=== PATIENT | female | born 1955 | race Caucasian/White ===

== ENCOUNTER 2024-06-26 13:39 | Inpatient (IN) | payer OTHER, SELFPAY ==
[2024-06-26] VITALS (15 sets, daily range): BP systolic 94–163; BP diastolic 41–76
[2024-06-26 10:47] LABS: % Basophils 0.4 % (0-2); % Eosinophils 1.2 % (0-6); % Immature Granulocytes 1.2 % (0-0.5); % Lymphocytes 17.8 % (20.5-51.1); % Monocytes 4.1 % (1.7-9.3); % Neutrophils 75.3 % (42.2-75.2); ALT (SGPT) 20 U/L (0-35); AST (SGOT) 21 U/L (14-36); Absolute Eosinophils 0.1 10^3/uL (0-0.7); Absolute Immature Granulocytes 0.1 10^3/uL (0-0.05); Absolute Lymphocytes 0.9 10^3/uL (1.2-3.4); Absolute Monocytes 0.2 10^3/uL (0.1-0.6); Absolute Neutrophils 3.8 10^3/uL (1.4-6.5); Albumin 4.3 g/dl (3.5-5.0); Alkaline Phosphatase 110 U/L (38-126); Blood Urea Nitrogen 14 mg/dl (7-17); Calcium 9.3 mg/dl (8.4-10.2); Carbon Dioxide 23 mmol/L (22-30); Chloride 102 mmol/L (98-107); Glucose 128 mg/dl (70-99); Hematocrit 16.6 % (37.0-47.0); Hemoglobin 5.8 g/dL (12.0-16.0); Mean Corp Hgb Conc. 34.9 g/dL (33.0-37.0); Mean Corpuscular Hgb 36.7 pg (27.0-31.0); Mean Corpuscular Volume 105.1 fL (81.0-99.0); Mean Platelet Volume 11.2 fL (7.4-10.4); Nucleated Red Blood Cells % 0 %; Platelet Count 167 10^3/uL (130-400); Potassium 4.2 mmol/L (3.5-5.1); Red Blood Cell Count 1.58 10^6/uL (4.20-5.40); Red Cell Dist. Width 13.8 % (11.5-14.5); Sodium 136 mmol/L (135-145); Total Bilirubin 0.6 mg/dl (0.2-1.3); Total Protein 7.1 g/dl (6.3-8.2); White Blood Cell Count 5.1 10^3/uL (4.8-10.8); eGFR > 60.00
--- NOTE | 2024-06-26 11:30 | ED.GENMED ---
History of Present Illness
General
Chief Complaint: Abnormal Lab Value
Source: patient and family (son at bedside)
Exam Limitations: none
Time Seen by Provider: 06/26/24 10:55
Nursing documentation reviewed up to this point in time: agreed with
History of Present Illness
History of Present Illness:
Patient is a 68F w/ hx breast CA on Talzenna, HTN, HLD presenting to the emergency department with low hemoglobin found on outpatient lab work. Patient states she is currently being treated with chemotherapy drug, Talzenna for breast cancer. She
has been on his medication for 3 months. She states that she has routine blood work about every month and states that yesterday she was called by her oncologist stating her hemoglobin was 5 and she needs to go to the emergency department. Patient
does report gradually worsening lightheadedness, weakness, and pain in her legs with walking.
Patient denies any shortness of breath, abdominal pain, dark or bloody stools. No hemoptysis or hematochezia. No fevers or chills
Patient states last month her hemoglobin was around 9.
Past History
Past History
ED Past Medical History: HTN and Other (PAD w/ R LE stent)
ED Past Surgical History: Orthopedic
Social History
Tobacco: Non-smoker
Alcohol: Occasional
Drug: None
Review of Systems
Review of Systems
Allergies reviewed?: Yes
All Other Systems: ROS reviewed and negative except as documented in HPI and ROS
Phy Exam
Physical Exam
Physical Exam:
Vitals: BP soft. Otherwise vital signs stable.
General: Patient is pale and weak appearing.
Skin: Pale. Warm and dry, no rashes or lesions
Head: Normocephalic, atraumatic
Eyes: Sclera nonicteric. EOMs intact. No nystagmus.
Throat: Protecting airway
Neck: Normal ROM, no cervical spine tenderness, no meningismus
Cardiac: Regular rate and rhythm, no murmurs.
Pulm: Normal respiratory effort, no wheezes, rales, rhonchi heard on exam.
Abdomen: Abdomen soft and nontender.
Extremities: No evidence of cyanosis or edema. Palpable distal pulses
Neuro: AAOx3. Grossly intact.
Psychiatric: Normal affect.
Course
Orders/Labs/Results
Orders:
Orders
06/26/24 10:13
Type+Screen Urgent
Complete Blood Count/With Diff Urgent
Comprehensive Metabolic Panel Urgent
Ferritin Urgent
Comment: ADD ON
Iron Urgent
Total Iron Binding Urgent
Vitamin B12 Urgent
Comment: ADD ON
06/26/24 11:31
Electrocardiogram (*1) Urgent
Reason for Study: Vertigo / Dizzy
EKG- Treatment ONCE
06/26/24 11:41
* Blood Bank Products Urgent
Blood Bank Products: *Packed RBC Leuko(PRBC's)
Quantity: 2
Transfuse Today: Yes
Reason: Anemia
06/26/24 11:53
ABO2 Urgent
BBK Wristband Number:
Associate notified that ABO2 has been ordered: [id number]
Date: 06/26/24
Time: 10:33
Filler In ID: [id number]
06/26/24 12:56
HEMATOLOGY CONSULT Routine
Consulting Provider: Jarvis Phillips
Was physician already notified: Yes
Reason for consult: Symptomatic anemia on immunotherapy breast CA
06/26/24 12:58
Admit/Transfer Patient As Directed
Co-Sign Provider:
Level of Care: Inpatient admission
Assign to:: Telemetry
Physician / Group: alexa birmingham
Diagnosis: Symptomatic anemia on immunotherapy for breast cancer
Reason for Telemetry: Arrhythmia
Date to Stop Telemetry: 06/29/24
Time to Stop Telemetry: 11:00
Reason for Hospitalization: Symptomatic anemia on immunotherapy for breast cancer
Expected length of stay greater than two midnights?: Yes
ELOS- Estimated Length of Stay in days: 5
I certify the patient meets the requirements for IP care: Yes
Code Status As Directed
Resuscitation Status: Full Code
06/26/24 13:01
PRN Pain Medication Management As Directed
May give lesser potent ordered pain med per pt: Yes
preference::
Protocol:: Medication orders for pain may be administered in a
manner that supports deferring to patient preference
when the pt is:
- Requesting an ordered lesser potent pain medication.
Least to most potent pain medications are defined
as: acetaminophen < NSAID < tramadol < opioids
(morphine, oxycodone, hydromorphone).
- Requesting a lesser dose of the same medication IF
ORDERED.
- Requesting a less intrusive route of administration
if both routes are prescribed by the provider (PO <
IV).
06/26/24 13:02
Add On- LAB Urgent
Tests Added?: tibc, ferritin, iron, folate b12,
Stool for occult blood [Hemetest Stools] As Directed
06/29/24 11:00
DC Protocol for Telemetry ONCE
Abnormal Lab Results
06/26/24
10:13
RBC 1.58 L 10^6/uL
(4.20-5.40)
Hgb 5.8 L* g/dL
(12.0-16.0)
Hct 16.6 L* %
(37.0-47.0)
MCV 105.1 H fL
(81.0-99.0)
MCH 36.7 H pg
(27.0-31.0)
MPV 11.2 H fL
(7.4-10.4)
Abs Immat Gran (auto) 0.1 H 10^3/uL
(0-0.05)
Absolute Lymphs (auto) 0.9 L 10^3/uL
(1.2-3.4)
Immature Gran % 1.2 H %
(0-0.5)
Neutrophils % 75.3 H %
(42.2-75.2)
Lymphocytes % 17.8 L %
(20.5-51.1)
Glucose 128 H mg/dl
(70-99)
Iron 259 H ug/dl
(37-170)
TIBC 240 L ug/dl
(265-497)
% Saturation 107 H %
(20-50)
Crossmatch IS Only See Detail
06/26/24 10:13
06/26/24 10:13
Vital Signs
Initial and Last Documented VS:
Initial Vital Signs
Temp Pulse Resp BP Pulse Ox
97.9 F 100 18 141/66 100
06/26/24 10:00 06/26/24 10:00 06/26/24 10:00 06/26/24 10:00 06/26/24 10:00
Last Documented Vital Signs
Temp Pulse Resp BP Pulse Ox
98.2 F 74 20 128/58 99
06/26/24 17:11 06/26/24 17:11 06/26/24 17:11 06/26/24 17:11 06/26/24 17:11
MDM/Problems Addressed
Differential Diagnosis Includes:
Not limited to: Symptomatic anemia, medication side effect, etc.
MDM/Problems Addressed:
68-year-old female with breast CA currently on oral chemotherapy Talzenna presenting with symptomatic anemia. Contacted by oncology team after outpatient lab work showed hemoglobin of 5 yesterday. Apparently hemoglobin was around 9 last month.
She does report worsening lightheadedness and weakness over the past few weeks. She arrives with stable vital signs. Physical exam as above. Basic labs were sent off in triage significant for hemoglobin of 5.8. Chemistry without clinically
significant abnormalities. Suspect likely symptomatic anemia from oral chemotherapy medication. No symptoms to suspect GI bleeding at this time. Patient remains stable. Given significant anemia�feel she would benefit from inpatient
management/further evaluation. 2 units PRBCs ordered in ED. Patient accepted to hospitalist for further evaluation management in stable condition.
Chronic conditions affecting care:
Breast cancer on oral chemotherapy
Acute Exacerbation and/or Progression of Chronic Illness:
Acute anemia
*Pulse Oximetry
Patient hypoxic: no
*EKG
Interpreted by ED Provider?: Yes
EKG Intrepretation Date: 06/26/24
Comparison EKG: no changes
Heart Rate: 78
Rate: normal
Rhythm: sinus
[place]: normal axis
QRS Pattern: left vent hypertrophy
Ischemia: no ischemia
*Money Manager Interpretation
Rate: Money Manager- N/A
*Critical Care Note
Total Time (30-74mins, 75-104mins- exclusive of procedures): Not Applicable
Patient Management
Discussion with other providers: Hospitalist
Escalation/DeEscalation of care consider admission/obs:
Patient admitted for symptomatic anemia, blood transfusion and further evaluation/management
ED Attending Note
-
Portions of this chart may have been created with voice recognition software.� Occasional wrong word or��sound alike� substitutions may have occurred due to the inherent limitations of voice recognition software.
Discharge Plan
Departure
Patient Disposition: Admit
Date of Disposition: 06/26/24
Time of Disposition: 11:43
Presentation/result/management discussed w/ accepting MD/DO: Hospitalist
Discharge Problem:
Symptomatic anemia
Interventions
Interventions:
*Risk Screen - Suicide Last Done: 06/26/24 10:00
*General Assessment Last Done: 06/26/24 10:00
*ED COVID-19 Vaccine History Last Done: 06/26/24 10:00
--- NOTE | 2024-06-26 12:12 | HPS.HSE ---
Family Physician
-
Family Physician: Christine Guerrero
Chief Complaint
-
Lightheadedness
History of Present Illness
68-year-old female With history of breast cancer unknown type diagnosed December 2022 who is on Talzenna type of immunotherapy daily for the past 3-1/2 months. She and her son state 3-1/2 weeks ago she was lightheaded and had a hemoglobin of 9 but
they feel it was not addressed by her oncologist Dr. Kerr. She was sent to the ER today for outpatient lab work showing low hemoglobin. She reports she has been on this medication for the past 3 months with monthly blood work every month.
She is reporting lightheadedness, generalized weakness, pain in her legs with walking. She denies headache, fever, chills, chest pain, palpitations, cough, shortness of breath, abdominal pain, nausea, vomiting, diarrhea, dark or bloody stools,
hematuria, urinary symptoms. She was noted to have a hemoglobin of 5.8 in the ER. She and her son are very upset at answering history and physical questions I tried to explain that history and physical is necessary for admission however they were
not interested as I was not a 'doctor'. Her other past medical history includes HTN, HLD, PAD with right lower extremity stent x 3 in 2018, cardiac arrest postop in recovery 2018 after stents to right lower extremity x3 cardiac arrest 2019 status
post wrong leg accessed left side with hemorrhage of 5 units of blood, ex-smoker, chronic constipation, osteoporosis
Medical History
Past Medical History
Past Medical History: Reports Other
Additional Past Medical History:
Left breast cancer Dx December 2022 on current immunotherapy 3.5 months
HTN
HLD
, PAD with right lower extremity stent x 3 in 2019
cardiac arrest postop in recovery 2019 after stents to right lower extremity x3 cardiac arrest 2020 status post wrong leg accessed left side with hemorrhage of 5 units of blood
ex-smoker
chronic constipation
osteoporosis
Past Surgical History: Reports Other (Right leg stent x3 2018, left leg accessed 2020 wrong leg by other vascular surgeon lost 5 units of blood led to cardiac arrest, right ankle fracture fixed with pins and screws)
Social History
Tobacco: Former Smoker (30-year half pack a day quit 2019)
Alcohol: None
Drug: None
Personal: Single
Living: With Family
Employment: Retired
Family History
Family History: Unable to Obtain
Allergies / Home Medications
Allergies reflects when Allergies were last updated in [facility].
Home Medications with original date entered in [facility]
Allergy/Medication List:
Allergies
Allergy/AdvReac Type Severity Reaction Status Date / Time
codeine Allergy Nausea / Verified 06/26/24 10:03
Vomiting
hydrochlorothiazide Allergy Unknown Verified 06/26/24 10:03
latex Allergy Itching Verified 06/26/24 10:03
morphine Allergy Hives Verified 06/26/24 10:03
oxycodone [From Percocet] Allergy Nausea / Verified 06/26/24 10:03
Vomiting
Home Medications
multivitamin-ferrous fumarate-folic acid 18 mg-400 mcg tablet (Centrum Women) 1 tab PO DAILY 01/03/23
rivaroxaban 2.5 mg tablet (Xarelto) 2.5 mg PO Q48H Blood Clot Prevention/Tx 01/03/23
talazoparib 1 mg capsule (Talzenna) 1 mg PO DAILY breast cancer 06/26/24
Review of Systems
-
History Source: Patient and Family (Son Jignesh at bedside)
A 12 point ROS was completed and negative except as noted: Yes
Constitutional: Reports Fatigue; Denies Fever or Chills
EENT: Denies Sore Throat or Runny Nose
Respiratory: Denies Cough or Trouble Breathing
Cardiac: Denies Chest Pain, Diaphoresis, Palpitations or Syncope
Abdomen/GI: Denies Abdominal Pain, Nausea, Vomiting, Diarrhea, Constipated, Bloody Stools or Black Stools
: Denies Dysuria, Frequency, Flank Pain, Incontinence, Difficulty Voiding or Bleeding
Musculoskeletal: Denies Joint Pain or Edema
Skin: Denies Itching or Rash
Neurological: Reports Dizzy and Weakness; Denies Headache
Endocrine: Reports No Symptoms
Hematologic/Lymphatic: Reports No Symptoms
Psych: Reports Other (Agitated due to being asked medical questions)
Physical Exam
Vital Signs
Vital Signs
Temp Pulse Resp BP Pulse Ox
97.9 F 100 18 141/66 100
06/26/24 10:00 06/26/24 10:00 06/26/24 10:00 06/26/24 10:00 06/26/24 10:00
Physical Exam
General: Conversant (But agitated when asked medical questions in reference to history and physical by a nurse practitioner as they only want a physician); No Fever or Chills
HEENT: NormoCephalic, Anicteric, Atraumatic, PERRLA, No Ptosis and Other (Pale conjunctiva)
Respiratory: Clear; No Wheezes, Rales or Rhonchi
Cardiac: S1/S2 and Regular Rhythm; No Murmur, Rub, Gallop or Peripheral Edema
Breast: Deferred by me
GI: Soft, Non Tender, Non Distended and Normal Bowel Sounds
Genito-urinary: Deferred by me
Musculoskeletal: No Clubbing, No Cyanosis and No Edema
Skin: Warm and Dry; No Rash or Jaundice
Neuro: AO x 3, No Motor Deficits, Nonfocal/grossly intact, Cranial Nerves Intact and No Sensory Deficits; No Slurred Speech, Facial Droop, Tremors or Sedated
Psych: Agitated (But agitated when asked medical questions in reference to history and physical by a nurse practitioner as they only want a physician)
Laboratory Results
-
06/26/24 10:13
06/26/24 10:13
Laboratory Results
Total Bilirubin 0.6 mg/dl (0.2-1.3) 06/26/24 10:13
AST 21 U/L (14-36) 06/26/24 10:13
ALT 20 U/L (0-35) 06/26/24 10:13
Alkaline Phosphatase 110 U/L (38-126) 06/26/24 10:13
Data Reviewed
-
Lab Data: Labs Reviewed by me
Impression/Plan
-
Impression/plan:
Admit to telemetry
#Symptomatic anemia 2/2 immunotherapy for breast cancer
No reported black or bloody stools, hematuria or nosebleeds
Hgb 5.8
Type and screen
Transfuse 2 units PRBC
-Hold Talzenna 1 mg daily has been on for the past 3.5 months was on prior Ibrance
-Consult Oncology patient follows with Dr. Kerr
Check iron panel, B12, folate, fecal occult
#HTN�benign
BP 141/66
-No current meds
#HLD
No current meds
#PAD with right lower extremity stents x 3
Hold Xarelto 2.5 mg every 48 H
#Cardiac arrest postop 2019 by other vascular surgeon who was attempting to access left leg(wrong leg) when she lost 5 units of blood
Ex-smoker
1/2 pack daily x 30 years quit 5 years ago
#Chronic constipation
-No current medication
Osteoporosis
Continue Centrum women's vitamin
DVT prophylaxis
SCDs
Full code per patient with son Jignesh at bedside [phone]
--- NOTE | 2024-06-26 12:58 | W.PN.UPDATE ---
Update Note
Progress Note Update
This is an addendum to H&P written by Princess Lima on 06/26/2024.� Patient seen examined independently with LOCOMOTIVE LUBRICATING SYSTEMS CLERK.
68-year-old female past medical history of breast cancer on Talzenna, hypertension, hyperlipidemia, PAD s/p RLE stent on Xarelto, cardiac arrest presenting with low hemoglobin on outpatient labs.� She has been on Talzenna for the past 3 months.�
Yesterday told her hemoglobin was 5.� She reports worsening lightheadedness, weakness and pain in her legs while walking.� Denies any blood in the stool or dark stool.� Hemoglobin 9 last month.
Heart rate of 100.
Hemoglobin 5.8, macrocytic anemia.
Patient with symptomatic anemia likely�secondary to Talzenna.
Check Hemoccult.� Check iron studies, B12 and folate. 2 units blood transfusion. Hold Talzenna. Hold xarelto. Hematology consulted.�
[2024-06-26 13:42] LABS: Iron 259 ug/dl (37-170)
[2024-06-26 13:52] LABS: Percent Saturation 107 % (20-50); Total Iron Binding Capacity 240 ug/dl (265-497)
[2024-06-26 17:54] LABS: Vitamin B12 742 pg/ml (239-931)
[2024-06-27 03:55] VITALS: BP 138/80
[2024-06-27 05:48] LABS: Hematocrit 22.5 % (37.0-47.0); Hemoglobin 8.3 g/dL (12.0-16.0); Mean Corp Hgb Conc. 36.9 g/dL (33.0-37.0); Mean Corpuscular Hgb 33.2 pg (27.0-31.0); Mean Platelet Volume 10.6 fL (7.4-10.4); Platelet Count 139 10^3/uL (130-400); Red Cell Dist. Width 18.8 % (11.5-14.5); White Blood Cell Count 3.9 10^3/uL (4.8-10.8)
[2024-06-27 06:28] LABS: ALT (SGPT) 17 U/L (0-35); AST (SGOT) 20 U/L (14-36); Albumin 4.1 g/dl (3.5-5.0); Alkaline Phosphatase 106 U/L (38-126); Blood Urea Nitrogen 16 mg/dl (7-17); Calcium 9.2 mg/dl (8.4-10.2); Carbon Dioxide 20 mmol/L (22-30); Chloride 106 mmol/L (98-107); Glucose 99 mg/dl (70-99); Potassium 4.3 mmol/L (3.5-5.1); Sodium 135 mmol/L (135-145); Total Bilirubin 1.2 mg/dl (0.2-1.3); Total Protein 6.6 g/dl (6.3-8.2); eGFR > 60.00
[2024-06-27 07:34] VITALS: BP 161/71
[2024-06-27 07:36] LABS: % Basophils 0.5 % (0-2); % Eosinophils 3.1 % (0-6); % Lymphocytes 35.9 % (20.5-51.1); % Neutrophils 52.5 % (42.2-75.2); Absolute Eosinophils 0.1 10^3/uL (0-0.7); Absolute Lymphocytes 1.4 10^3/uL (1.2-3.4); Absolute Monocytes 0.3 10^3/uL (0.1-0.6); Nucleated Red Blood Cells % 0 %
--- NOTE | 2024-06-27 09:53 | W.PN.HOSP.TC ---
Addendum entered and electronically signed by Hilaria Schmitz MD 06/27/24 14:40:
Addendum
Patient was seen and examined by oncology. Discussed with Dr. Burkett. Okay to resume Xarelto for DVT prophylaxis. Will follow in the office. Okay to discharge
Total discharge time spent to see the patient, examine the patient, discussed discharge planning with patient and nursing staff around 35 minutes
Original Note:
Today's Communication/Plan
-
dc
Assessment / Plan
Assessment / Plan
Physical Exam
General: Conversant, comfortable, not in pain or respiratory distress, No Fever or Chills
HEENT: NormoCephalic, Anicteric, Atraumatic, PERRLA, No Ptosis.
Respiratory: Clear; No Wheezes, Rales or Rhonchi
Cardiac: S1/S2 and Regular Rhythm; No Murmur, Rub, Gallop or Peripheral Edema
Breast: Deferred by me
GI: Soft, Non Tender, Non Distended and Normal Bowel Sounds
Genito-urinary: no hematuria
Musculoskeletal: No Clubbing, No Cyanosis and No Edema
Skin: Warm and Dry; No Rash or Jaundice
Neuro: AO x 3, No Motor Deficits, Nonfocal/grossly intact, Cranial Nerves Intact and No Sensory Deficits; No Slurred Speech, Facial Droop, Tremors or Sedated
Psych: calm, no agitation
#Symptomatic anemia 2/2 immunotherapy for breast cancer
No reported black or bloody stools, hematuria or nosebleeds
Hgb 5.8
Type and screen
Transfused 2 units PRBC with no reaction
d/w Dr Burkett, ok to go home
#HTN�benign
-No current meds
#HLD
No current meds
#PAD with right lower extremity stents x 3
#Cardiac arrest postop 2020 by other vascular surgeon who was attempting to access left leg(wrong leg) when she lost 5 units of blood
Ex-smoker
1/2 pack daily x 30 years quit 5 years ago
#Chronic constipation
-No current medication
Osteoporosis
Continue Centrum women's vitamin
DVT prophylaxis
SCDs
Total time spent to see the patient, examine the patient, review data and lab results, discussed discharge planning with patient, oncology, nursing staff around 33 minutes
Anticipated Discharge: Today
Subjective/Interval History
-
Date of Service: June 27, 2024
She feels better
She wants to go home
Not dizzy
No sob or chest pain
Objective Data
-
Labs:
Laboratory Results
06/27/24
05:21
WBC 3.9 L
Hgb 8.3 L D
Hct 22.5 L
Plt Count 139
Sodium 135
Potassium 4.3
Chloride 106
Carbon Dioxide 20 L
BUN 16
Creatinine 0.7
Glucose 99
Calcium 9.2
Total Bilirubin 1.2
AST 20
ALT 17
Alkaline Phosphatase 106
Vital Signs:
Vital Signs
Temp Pulse Resp BP Pulse Ox
97.7 F 75 14 161/71 97
06/27/24 07:34 06/27/24 07:34 06/27/24 07:34 06/27/24 07:34 06/27/24 07:34
I&O
06/26/24 06/27/24 06/28/24
06:59 06:59 06:59
Intake Total 500 / 500
Balance 500 / 500
[2024-06-27 10:55] VITALS: BP 142/64
--- NOTE | 2024-06-27 11:45 | CON.ONC ---
Impression
Impression
68 year old female
Stage IV Invasive Ductal Carcinoma
Symptomatic Anemia
Plan
Plan
- Hgb now 8.3 s/p 2U PRBCs. Asymptomatic at this time.
- Iron studies show Iron 259 H, TIBC 240 L, Saturation 107% H, Ferritin 226. Results potentially due to hemolysis in the tube prior to analysis. Would repeat as outpatient if needed. B12 742
- Anemia most likely the consequence of chemotherapy Talzenna. Will need follow up with Dr. Kerr for medication adjustment in lieu of symptomatic anemia. Has follow up scheduled on July 11.
- No signs of active bleeding at this time, would agree with discharge and close follow up within 1-2 weeks with oncologist & repeat CBC.
Patient History
History of Present Illness
68 year old female with a past medical history of Stage IV IDC of the R breast with local invasion and mets to the lungs. Currently on Talzenna x3 months. Is know to Dr. Kerr/Erickson and has been followed as an outpatient during treatment with
monthly lab work. Hgb has been stable at or above 9 on outpatient labs until recently when she was found to have a hgb of 5.8. She was contacted by the office and told to come to the ED. She endorses symptoms of progressive weakness and fatigue, but
denies chest pain, palpitations, syncope, shortness of breath, or constitutional symptoms. She denies any hematochezia, melena, hemoptysis, hematuria, bruising or nosebleeds.
She has received 2 units of PRBCs and is feeling much better and would like to go home.
Past-Medical/Surgical History
Past Medical History: Stage IV Invasive Ductal Carcinoma, hypertension, hyperlipidemia, ex-smoker, osteoporosis
Past Surgical History: RLE stenting x3 2018, Breast biopsy 2022, right ankle surgery 2015
Patient Medication
�Medication �Instructions �Recorded �Confirmed �Last Taken �Type
multivitamin-ferrous 1 tab PO DAILY 01/03/23 06/26/24 01/05/23 10:30 History
fumarate-folic acid 18 mg-400 mcg
tablet (Centrum Women)
rivaroxaban 2.5 mg tablet (Xarelto) 2.5 mg PO Q48H Blood Clot 01/03/23 06/26/24 06/25/24 10:00 History
Prevention/Tx
talazoparib 1 mg capsule (Talzenna) 1 mg PO DAILY breast cancer 06/26/24 06/26/24 06/25/24 History
Active Medications
Generic Name Dose Route Start Last Admin
Trade Name Freq PRN Reason Stop Dose Admin
Acetaminophen 650 mg 06/26/24 18:05
Acetaminophen 325 Mg Tablet PO 07/24/24 18:04
Q4HPRN PRN
mild pain/[place]/temp> 100.4F
Multivitamins Therapeutic 1 tablet 06/27/24 08:00 06/27/24 08:36
Multivitamin Tablet PO 07/25/24 07:59 Not Given
DAILY ULYSSES
Polyethylene Glycol 17 grams 06/27/24 08:00 06/27/24 08:35
Polyethylene Glycol Powder 17 Grams Packet PO 07/25/24 07:59 Not Given
DAILY ULYSSES
Sennosides 8.6 mg 06/26/24 20:00 06/27/24 08:35
Sennosides (Senokot) 8.6 Mg Tablet PO 07/24/24 19:59 Not Given
BID ULYSSES
Sodium Chloride 0 flush 06/26/24 19:00
Sodium Chloride 0.9% (Flush) Syringe IV 07/24/24 18:59
PER PROTOCOL ULYSSES
Review of Systems
-
History Source: Patient
All Other Systems: Reviewed and Negative
Constitutional: Denies Fever, Fatigue, Night Sweats or Chills
EENT: Denies Sore Throat, Runny Nose or Bloody Nose
Respiratory: Denies Cough, Hemoptysis, Trouble Breathing or Wheezing
Cardiac: Denies Chest Pain, Palpitations or Syncope
GI: Denies Abdominal Pain, Nausea, Vomiting, Diarrhea, Constipated or Bloody Stools
Breast: Reports Mass/Lump
: Denies Dysuria, Flank Pain or Bleeding
Musculoskeletal: Reports No Symptoms
Skin: Denies Itching or Rash
Neuro: Denies Dizzy or Headache
Hematologic/Lymphatic: Denies Bleeding, Bruising or Blood Clots
Psych: Reports No Symptoms
Physical Exam
-
General: Well Developed, Well Nourished and No Apparent Distress
HEENT: Moist Mucous Membranes; Negative Jaundice
Cardiology: Normal Sinus Rhythm, S1, S2 and No Murmur
Pulmonary: Clear; Negative Wheezes, Rales or Rhonchi
GI: Soft and Normal Bowel Sounds; Negative Distended
Genito-Urinary: No Costovertebral Tenderness
Musculoskeletal: No Clubbing, No Cyanosis and No Edema
Skin: Warm, Dry and IV Access / Catheter Site
Hematologic / Lymphatic: No Petechiae
Psych: Intact Judgement/Insight
Labs
Lab Results
WBC 3.9 10^3/uL (4.8-10.8) L 06/27/24 05:21
RBC 2.50 10^6/uL (4.20-5.40) L 06/27/24 05:21
Hgb 8.3 g/dL (12.0-16.0) L D 06/27/24 05:21
Hct 22.5 % (37.0-47.0) L 06/27/24 05:21
MCV 90.0 fL (81.0-99.0) D 06/27/24 05:21
MCH 33.2 pg (27.0-31.0) H 06/27/24 05:21
MCHC 36.9 g/dL (33.0-37.0) 06/27/24 05:21
RDW 18.8 % (11.5-14.5) H 06/27/24 05:21
Plt Count 139 10^3/uL (130-400) 06/27/24 05:21
MPV 10.6 fL (7.4-10.4) H 06/27/24 05:21
Abs Immat Gran (auto) 0.0 10^3/uL (0-0.05) 06/27/24 05:21
Absolute Neuts (auto) 2.0 10^3/uL (1.4-6.5) 06/27/24 05:21
Absolute Lymphs (auto) 1.4 10^3/uL (1.2-3.4) 06/27/24 05:21
Absolute Monos (auto) 0.3 10^3/uL (0.1-0.6) 06/27/24 05:21
Absolute Eos (auto) 0.1 10^3/uL (0-0.7) 06/27/24 05:21
Absolute Basos (auto) 0.0 10^3/uL (0-0.2) 06/27/24 05:21
Immature Gran % 0.0 % (0-0.5) 06/27/24 05:21
Neutrophils % 52.5 % (42.2-75.2) 06/27/24 05:21
Lymphocytes % 35.9 % (20.5-51.1) 06/27/24 05:21
Monocytes % 8.0 % (1.7-9.3) 06/27/24 05:21
Eosinophils % 3.1 % (0-6) 06/27/24 05:21
Basophils % 0.5 % (0-2) 06/27/24 05:21
Creatinine 0.7 mg/dL (0.6-1.0) 06/27/24 05:21
Vital Signs
Vital Signs
Temp Pulse Resp BP Pulse Ox
98.2 F 73 14 142/64 99
06/27/24 10:55 06/27/24 10:55 06/27/24 10:55 06/27/24 10:55 06/27/24 10:55
--- NOTE | 2024-06-27 13:44 | CM ---
Alert awake oriented patient who lives with her mom Cordelia who she is caregiver.They live in an apartment with 0 steps to enter .She is independent in driving and in all activities of daily living.Offered VN she declined.Son Jignesh will drive her
home. Pt refused Adv directive pkg.
No adaptive devices
Never had VN/SNF
Pharmacy [facility]
PCP Dr [facility]
PLAN Home no needs
--- NOTE | 2024-06-27 14:32 | W.DCSUMMARY ---
Discharge Summary
Discharge Data
Date of Admission: 06/26/24
Date of Discharge: 06/27/24
-
Pending Results: No
Hospital Course
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 Patient had hemoglobin around 5. She was admitted to the hospital received 2 units of
blood transfusion. Posttransfusion hemoglobin was around 8. Patient was evaluated by oncology/hematology doctor. Iron study showed iron 259, TIBC 240, saturation 107%, ferritin 226. That could be potentially due to hemolysis in the tube prior to
analysis. Patient did not have shortness of breath or overwhelming fatigue. She reported feeling better after transfusion. Oncology recommended outpatient follow-up. Patient did not have signs of acute infection. Patient tolerated diet well.
She was advised to follow-up with her oncologist in outpatient setting. Patient was discharged in stable condition.
Discharge Plan
-
Patient Disposition: Home (Routine Discharge)
Discharge Diagnosis/Procedures: Anemia, you were seen by oncology Dr. Burkett. You can resume your home medications as before.
Diet: As tolerated
Referrals:
Christine Guerrero MD [Family Provider] - 07/11/24
Prescriptions:
Continued
Centrum Women 18-400 mg-mcg Tablet
1 tab PO DAILY
rivaroxaban [Xarelto] 2.5 mg Tablet
2.5 mg PO Q48H
Talzenna 1 mg capsule
1 mg PO DAILY
Discharge Orders:
Discharge Patient (As Directed); Ordered 06/27/24
Ordered By: Hilaria Schmitz
Discharge Date and Time
Discharge Date/Time: 06/27/24 13:41
Print Language: SPANISH
== END 2024-06-27 13:41 | disposition home or self-care (01) | DRG 812 ==
LOC: 3 WEST ACU 13:39
PROVIDERS: Clinical Nurse Specialist Family Health; ADMITTING PHYSICIAN Hospitalist; ATTENDING PHYSICIAN Internal Medicine; EMERGENCY PHYSICIAN Emergency Medicine; FAMILY PHYSICIAN Internal Medicine Hematology & Oncology
PROC: 30233N1 Transfusion of Nonautologous Red Blood Cells into Peripheral Vein, Percutaneous Approach (ICD-10-PCS; 2024-06-26)
DX: D64.81 Anemia due to antineoplastic chemotherapy (principal); C78.00 Secondary malignant neoplasm of unspecified lung; C50.911 Malignant neoplasm of unspecified site of right female breast; T45.1X5A Adverse effect of antineoplastic and immunosuppressive drugs, initial encounter; E78.5 Hyperlipidemia, unspecified; I10 Essential (primary) hypertension; Z86.74 Personal history of sudden cardiac arrest; K59.09 Other constipation; M81.0 Age-related osteoporosis without current pathological fracture; Z79.01 Long term (current) use of anticoagulants; Z87.891 Personal history of nicotine dependence
CPT/HCPCS: 36430; 80053; 82607; 82728; 83540; 83550; 85025; 86850; 86900; 86901; 86920; 93005; 99285; P9016

== ENCOUNTER 2024-09-02 14:35 | Inpatient (IN) | payer OTHER, SELFPAY ==
[2024-09-02] VITALS (14 sets, daily range): BP systolic 105–154; BP diastolic 61–90; BMI 21.9; BMI 20.6
[2024-09-02 11:00] LABS: ALT (SGPT) 19 U/L (0-35); AST (SGOT) 22 U/L (14-36); Albumin 4.5 g/dl (3.5-5.0); Alkaline Phosphatase 91 U/L (38-126); Blood Urea Nitrogen 15 mg/dl (7-17); Calcium 9.4 mg/dl (8.4-10.2); Carbon Dioxide 21 mmol/L (22-30); Chloride 104 mmol/L (98-107); Glucose 147 mg/dl (70-99); Potassium 4.6 mmol/L (3.5-5.1); Sodium 132 mmol/L (135-145); Total Bilirubin 0.4 mg/dl (0.2-1.3); Total Protein 7.4 g/dl (6.3-8.2); eGFR > 60.00
[2024-09-02 12:33] LABS: % Basophils 0.4 % (0-2); % Eosinophils 0.2 % (0-6); % Immature Granulocytes 0.6 % (0-0.5); % Lymphocytes 14.4 % (20.5-51.1); % Monocytes 10.4 % (1.7-9.3); APTT 31.5 Sec (23.4-35.0); Absolute Lymphocytes 0.7 10^3/uL (1.2-3.4); Absolute Monocytes 0.5 10^3/uL (0.1-0.6); Absolute Neutrophils 3.5 10^3/uL (1.4-6.5); Hematocrit 18.8 % (37.0-47.0); Hemoglobin 6.6 g/dL (12.0-16.0); Mean Corp Hgb Conc. 35.1 g/dL (33.0-37.0); Mean Corpuscular Hgb 33.7 pg (27.0-31.0); Mean Corpuscular Volume 95.9 fL (81.0-99.0); Mean Platelet Volume 10.7 fL (7.4-10.4); Nucleated Red Blood Cells % 0 %; PT 15.5 Sec (11.4-14.6); Platelet Count 198 10^3/uL (130-400); Red Blood Cell Count 1.96 10^6/uL (4.20-5.40); Red Cell Dist. Width 17.4 % (11.5-14.5); White Blood Cell Count 4.7 10^3/uL (4.8-10.8)
--- NOTE | 2024-09-02 13:35 | ED.GENMED ---
History of Present Illness
General
Chief Complaint: Abnormal Lab Value
Source: patient and family
Exam Limitations: none
Time Seen by Provider: 09/02/24 11:48
Nursing documentation reviewed up to this point in time: agreed with
History of Present Illness
History of Present Illness:
Patient with history of breast cancer, presents to ED secondary to worsening generalized weakness and dizziness over the past few days, similar to recent past when she required blood transfusion for anemia. Denies fever or chills. Denies shortness
of breath. Denies nausea, vomiting, or diarrhea. Denies loss of appetite. Denies recent illness. Denies recent travel. Denies seeing blood with urination or during bowel movements.
Past History
Past History
ED Past Medical History: HTN and Other (PAD w/ R LE stent)
ED Past Surgical History: Orthopedic
Social History
Tobacco: Non-smoker
Alcohol: Occasional
Drug: None
Review of Systems
Review of Systems
Allergies reviewed?: Yes
All Other Systems: ROS reviewed and negative except as documented in HPI and ROS
Constitutional: Reports fatigue; Denies fever or chills
Respiratory: Reports no symptoms; Denies trouble breathing
Cardiac: Reports no symptoms
ABD/GI: Reports no symptoms
Musculoskeletal: Reports no symptoms
Skin: Reports no symptoms
Neurological: Reports dizzy and weakness; Denies headache
Phy Exam
Physical Exam
Physical Exam:
Physical Exam
General: mild distress, not acutely ill. afebrile. pale appearing
Head: nc/at. eomi
Neck: supple. normal range of motion.
Heart: s1/s2 regular rate and rhythm
Lungs: no acute respiratory distress. clear bilaterally
Abdomen: normal bowel sounds. not tender.
Neuro: alert and oriented x 3. no focal neurological deficits
Skin: no rash
Psychiatric: well kept. interactive and cooperative
Extremities: no edema. no calf tenderness.
Course
Orders/Labs/Results
Orders:
Orders
09/02/24 10:28
Comprehensive Metabolic Panel Urgent
Iron Urgent
Total Iron Binding Urgent
09/02/24 12:15
Type And Crossmatch [Type+Screen] Urgent
Complete Blood Count/With Diff Urgent
Ferritin Urgent
Comment: ADD ON
Folate Urgent
Comment: ADD ON
PTT Urgent
Prothrombin Time Urgent
Vitamin B12 Urgent
Comment: ADD ON
09/02/24 13:36
* Blood Bank Products Urgent
Blood Bank Products: *Packed RBC Leuko(PRBC's)
Quantity: 2
Transfuse Today: Yes
Reason: Anemia
09/02/24 14:07
Admit/Transfer Patient As Directed
Co-Sign Provider:
Level of Care: Inpatient admission
Assign to:: Medical/Surgical
Physician / Group: Blanca Lee
Diagnosis: symptomatic anemia
Reason for Hospitalization: symptomatic anemia
Expected length of stay greater than two midnights?: Yes
ELOS- Estimated Length of Stay in days: 3
I certify the patient meets the requirements for IP care: Yes
PRN Pain Medication Management As Directed
May give lesser potent ordered pain med per pt: Yes
preference::
Protocol:: Medication orders for pain may be administered in a
manner that supports deferring to patient preference
when the pt is:
- Requesting an ordered lesser potent pain medication.
Least to most potent pain medications are defined
as: acetaminophen < NSAID < tramadol < opioids
(morphine, oxycodone, hydromorphone).
- Requesting a lesser dose of the same medication IF
ORDERED.
- Requesting a less intrusive route of administration
if both routes are prescribed by the provider (PO <
IV).
09/02/24 14:09
Code Status As Directed
Resuscitation Status: Full Code
09/02/24 Dinner
Regular
At Your Request: Full Participation
09/02/24 17:32
Acetaminophen [Tylenol] 650 mg PO Q4HPRN PRN
09/02/24 17:32
HEMATOLOGY CONSULT Routine
Consulting Provider: Christine Guerrero
Was physician already notified: Yes
Activity As Directed
Activity Level: As Tolerated
Pneumatic Compression Sleeves As Directed
Type: Knee high
Vital Signs As Directed
Frequency: Per unit guidelines
Weight As Directed
Frequency: Once
Comment: on admission
DX Deep Vein Thrombosis Video Routine
09/03/24 07:35
Basic Metabolic Panel IN AM
Complete Blood Count/No Diff IN AM
09/03/24 08:00
Multivitamin [Theragran] 1 tablet PO DAILY
[id number] [Airborne (ascorbate sodium)] 1 tablet PO DAILY
Abnormal Lab Results
09/02/24 09/02/24
10:28 12:15
WBC 4.7 L 10^3/uL
(4.8-10.8)
RBC 1.96 L 10^6/uL
(4.20-5.40)
Hgb 6.6 L* g/dL
(12.0-16.0)
Hct 18.8 L* %
(37.0-47.0)
MCH 33.7 H pg
(27.0-31.0)
RDW 17.4 H %
(11.5-14.5)
MPV 10.7 H fL
(7.4-10.4)
Absolute Lymphs (auto) 0.7 L 10^3/uL
(1.2-3.4)
Immature Gran % 0.6 H %
(0-0.5)
Lymphocytes % 14.4 L %
(20.5-51.1)
Monocytes % 10.4 H %
(1.7-9.3)
PT 15.5 H Sec
(11.4-14.6)
Sodium 132 L mmol/L
(135-145)
Carbon Dioxide 21 L mmol/L
(22-30)
Glucose 147 H mg/dl
(70-99)
Iron 252 H ug/dl
(37-170)
TIBC 238 L ug/dl
(265-497)
% Saturation 105 H %
(20-50)
Ferritin 360.0 H ng/ml
(11.1-264.0)
Folate > 20.0 H ng/ml
(2.76-20)
Crossmatch IS Only See Detail
09/02/24 12:15
09/02/24 10:28
Vital Signs
Initial and Last Documented VS:
Initial Vital Signs
Temp Pulse Resp BP Pulse Ox
98 F 85 16 106/75 100
09/02/24 10:14 09/02/24 10:14 09/02/24 10:14 09/02/24 10:14 09/02/24 10:14
Last Documented Vital Signs
Temp Pulse Resp BP Pulse Ox
97.9 F 67 18 132/63 100
09/03/24 07:00 09/03/24 07:00 09/03/24 07:00 09/03/24 07:00 09/03/24 07:00
MDM/Problems Addressed
MDM/Problems Addressed:
History and exam, along with blood work, consistent with symptomatic anemia.
Blood transfusion consent on the chart. Patient will be admitted for further evaluation and treatment, including blood transfusion.
*Critical Care Note
Total Time (30-74mins, 75-104mins- exclusive of procedures): Not Applicable
ED Attending Note
-
Portions of this chart may have been created with voice recognition software.� Occasional wrong word or��sound alike� substitutions may have occurred due to the inherent limitations of voice recognition software.
Discharge Plan
Departure
Patient Disposition: Admit
Date of Disposition: 09/02/24
Time of Disposition: 13:37
Presentation/result/management discussed w/ accepting MD/DO: Hospitalist
Discharge Problem:
Symptomatic anemia
Interventions
Interventions:
*General Assessment Last Done: 09/02/24 11:57
*Neglect/Abuse Screening Last Done: 09/02/24 11:57
*ED- Fall Risk Assessment Last Done: 09/02/24 11:57
*Nursing Disposition Last Done: 09/02/24 17:48
Discharge Date and Time
Discharge Date/Time: 09/02/24 17:15
--- NOTE | 2024-09-02 13:42 | HPS.HSE ---
Family Physician
-
Family Physician: NOT KNOW UNKNOWN - PT DOES
Chief Complaint
-
lightheadedness/generalized weakness
History of Present Illness
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
evaluation of lightheadedness and generalized weakness. Patient hospitalized 06/26/2024 - 06/27/2024 for symptomatic anemia, was transfused with 2 units of PRBCs with positive results. Patient was evaluated by hematology/oncology for work up for
potential iron deficiency, which was negative. Patient states she knew by feling that she needed to come for evaluation. Patient denies any bleeding, dark stools, chest pain or shortness of breath.
Medical History
Past Medical History
Past Medical History: Reports Other
Additional Past Medical History:
Left breast cancer Dx December 2022 on current immunotherapy 3.5 months
HTN
HLD
PAD with right lower extremity stent x 3 in 2019
cardiac arrest postop in recovery 2018 after stents to right lower extremity x3 cardiac arrest 2019 status post wrong leg accessed left side with hemorrhage of 5 units of blood
ex-smoker
chronic constipation
osteoporosis
Hx anemia
Past Surgical History: Reports Other
Additional Past Surgical History:
Right leg stent x3 2018
left leg accessed 2019 wrong leg by other vascular surgeon lost 5 units of blood led to cardiac arrest
right ankle fracture fixed with pins and screws
Social History
Tobacco: Former Smoker (30-year half pack a day quit 2019)
Alcohol: Occasional
Drug: None
Personal: Single
Living: With Family
Employment: Retired
Family History
Family History: Unable to Obtain
Allergies / Home Medications
Allergies reflects when Allergies were last updated in [employer].
Home Medications with original date entered in [employer]
Allergy/Medication List:
Allergies
Allergy/AdvReac Type Severity Reaction Status Date / Time
adhesive Allergy Itching Verified 09/02/24 10:13
codeine Allergy Nausea / Verified 09/02/24 10:13
Vomiting/Excessive
vomiting
hydrochlorothiazide Allergy Unknown Verified 09/02/24 10:13
latex Allergy Itching Verified 09/02/24 10:13
morphine Allergy Hives Verified 09/02/24 10:13
oxycodone (From Percocet) Allergy Nausea / Verified 09/02/24 10:13
Vomiting/Excessive
vomiting
Home Medications
mv-min-vit C-ascorb Nw-Nyg-Hgg-herb #124 333 mg-1.7 mg chewable tablet (Airborne (ascorbate sodium)) 1 tab PO DAILY 09/02/24
rivaroxaban 2.5 mg tablet (Xarelto) 2.5 mg PO BID 09/02/24
talazoparib 0.75 mg capsule (Talzenna) 0.75 mg PO DAILY 09/02/24
therapeutic multivitamin 1 tab PO DAILY 09/02/24
Review of Systems
-
History Source: Patient and Family (Son Jignesh at bedside)
A 12 point ROS was completed and negative except as noted: Yes
Constitutional: Denies Fatigue or Chills
Respiratory: Denies Cough or Trouble Breathing
Cardiac: Denies Chest Pain, Palpitations or Syncope
Abdomen/GI: Denies Diarrhea, Bloody Stools or Black Stools
Musculoskeletal: Denies Edema
Neurological: Reports Dizzy and Weakness; Denies Headache
Psych: Reports Other (Agitated due to being asked medical questions)
Physical Exam
Vital Signs
Vital Signs
Temp Pulse Resp BP Pulse Ox
98 F 71 12 111/90 100
09/02/24 10:14 09/02/24 12:00 09/02/24 12:00 09/02/24 12:00 09/02/24 10:14
Physical Exam
General: Well Developed, Well Nourished, No Apparent Distress, Conversant and Appears Chronically Ill
HEENT: NormoCephalic, Moist mucous membranes and Atraumatic
Respiratory: Clear and Non Labored Respirations
Cardiac: S1/S2 and Regular Rhythm
Breast: Deferred by me
GI: Soft, Non Tender, Non Distended and Normal Bowel Sounds
Rectal: Deferred by Provider
Genito-urinary: Deferred by me
Musculoskeletal: No Clubbing, No Cyanosis and No Edema
Skin: Warm and IV/Catheter Site
Neuro: Awake, Alert, AO x 3 and Nonfocal/grossly intact
Psych: Intact Judgment/Insight
Laboratory Results
-
09/02/24 12:15
09/02/24 10:28
Laboratory Results
PT 15.5 Sec (11.4-14.6) H 09/02/24 12:15
INR 1.20 09/02/24 12:15
APTT 31.5 Sec (23.4-35.0) 09/02/24 12:15
Total Bilirubin 0.4 mg/dl (0.2-1.3) 09/02/24 10:28
AST 22 U/L (14-36) 09/02/24 10:28
ALT 19 U/L (0-35) 09/02/24 10:28
Alkaline Phosphatase 91 U/L (38-126) 09/02/24 10:28
Data Reviewed
-
Lab Data: Labs Reviewed by me (hgb 6.6, hct 18.8, Na+ 132)
Impression/Plan
-
IMPRESSION/PLAN:
#symptomatic anemia likely 2/2 immunotherapy for metastatic breast cancer
hgb 6.6, hct 18.8
- Admit to telemetry
- 2 units PRBCs
- trend H/H
- check iron studies
- Consult Hematology
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
follows out patient with Dr. Kerr @ [facility]
- Hold Talzenna
#PAD
s/p right lower extremity stents x 3
- hold Xarelto
#hypertension
#hyperlipidemia
Code status: full code
DVT prophylaxis: SCDs
--- NOTE | 2024-09-02 14:05 | W.PN.UPDATE ---
Update Note
Progress Note Update
This is an addendum to H&P written by Monisha Pacheco on 09/02/2024.� Patient seen and examined independently with [employer].
68-year-old female past medical history of stage IV invasive ductal carcinoma of the right breast with local invasion and metastasis of the lungs on immunotherapy Talzenna, anemia secondary to immunotherapy, hypertension, hyperlipidemia, PAD right
lower extremity status post stents right lower extremity on Xarelto, cardiac arrest in 2019, ex-smoker, chronic constipation, osteoporosis, presenting for symptomatic anemia.
She was recently admitted in June for anemia secondary to Talzenna and received 2 units of blood transfusion.� Posttransfusion hemoglobin was 8.� He was seen by hematology recommended outpatient follow-up.�Talzenna dose reduced later.�
Hemoglobin of 6.6.
Patient with recurrent symptomatic anemia secondary to Talzenna.�
2 units of blood to be given.� Hold Xarelto for now.� Check iron studies.
--- NOTE | 2024-09-02 18:00 | PTCARENOTE ---
Patient admitted in to room 435-2. AAox3. Steady gait. VSS. 1 unit PRBC obtained, now infusing. Patent reports feeling a lot better this evening.
[2024-09-02 20:21] LABS: Iron 252 ug/dl (37-170)
[2024-09-02 20:30] LABS: Percent Saturation 105 % (20-50); Total Iron Binding Capacity 238 ug/dl (265-497)
[2024-09-02 21:44] LABS: Folate > 20.0 ng/ml (2.76-20); Vitamin B12 782 pg/ml (239-931)
--- NOTE | 2024-09-03 05:40 | PTCARENOTE ---
Patient upset with her roommate being disruptive. Ear plugs and eye mask offered. Nursing supervisor roving made aware to separate patient and her roommate; however, there are no beds currently available to make rooming switches. Will relay information to
dayshift RN and supercharger repair supervisor.
[2024-09-03 07:00] VITALS: BP 132/63
[2024-09-03] MEDS: THERAGRAN 1 TABLET PO (07:57)
[2024-09-03 08:07] LABS: Hematocrit 27.8 % (37.0-47.0); Hemoglobin 9.7 g/dL (12.0-16.0); Mean Corp Hgb Conc. 34.9 g/dL (33.0-37.0); Mean Corpuscular Hgb 30.4 pg (27.0-31.0); Mean Corpuscular Volume 87.1 fL (81.0-99.0); Mean Platelet Volume 10.6 fL (7.4-10.4); Platelet Count 189 10^3/uL (130-400); Red Blood Cell Count 3.19 10^6/uL (4.20-5.40); Red Cell Dist. Width 20.8 % (11.5-14.5); White Blood Cell Count 4.8 10^3/uL (4.8-10.8)
[2024-09-03 09:04] LABS: Blood Urea Nitrogen 16 mg/dl (7-17); Calcium 9.1 mg/dl (8.4-10.2); Carbon Dioxide 20 mmol/L (22-30); Chloride 104 mmol/L (98-107); Estimated Creatinine Clearance 72 ml/min; Glucose 108 mg/dl (70-99); Potassium 4.4 mmol/L (3.5-5.1); Sodium 132 mmol/L (135-145); eGFR > 60.00
--- NOTE | 2024-09-03 10:44 | CON.ONC ---
Consultation
-
Date Consultation Performed: 09/03/24
Impression
Impression
68 YO F with metastatic invasive ductal breast cancer being managed for symptomatic anemia
Plan
Plan
- monitor C?BC and transfuse as needed
- if okay with hospitalist team, patient is stable for DC
- FU OP with [facility]
- all other care per primary care team
Patient History
History of Present Illness
68 YO F with PMH of anemia, htn, hld, and stage IV invasive ductal ca of the R breast with metastases to lung who presented to with weakness and fatigue. Patient has known BRCA 2 mutation and is on oral PARP inhibitor therapy. One of the known
side effects of this therapy is anemia, likely causing the low Hb. Patient was given 2 U pRBC overnight and Hb has come up to 9.7. She states that overall she is feeling significantly better without headaches, NVD, CP, SOB, abdominal pain, blood in
stool or urine or ongoing upper or lower extremity weakness.
Patient Medication
�Medication �Instructions �Recorded �Confirmed �Last Taken �Type
mv-min-vit C-ascorb 1 tab PO DAILY Supplement 09/02/24 09/02/24 09/01/24 History
Io-Yqh-Skw-herb #124 333 mg-1.7 mg
chewable tablet (Airborne
(ascorbate sodium))
rivaroxaban 2.5 mg tablet (Xarelto) 2.5 mg PO BID Blood Clot 09/02/24 09/02/24 09/02/24 History
Prevention/Tx
talazoparib 0.75 mg capsule 0.75 mg PO DAILY Antineoplastic 09/02/24 09/02/24 08/30/24 History
(Talzenna) Agent 1 mg
therapeutic multivitamin 1 tab PO DAILY Supplement 09/02/24 09/02/24 09/01/24 History
Active Medications
Generic Name Dose Route Start Last Admin
Trade Name Freq PRN Reason Stop Dose Admin
Acetaminophen 650 mg 09/02/24 17:32
Acetaminophen 325 Mg Tablet PO 09/30/24 17:31
Q4HPRN PRN
mild pain/[place]/temp> 100.4F
Multivitamins Therapeutic 1 tablet 09/03/24 08:00 09/03/24 07:57
Multivitamin Tablet PO 10/01/24 07:59 1 tablet
DAILY ULYSSES Administration
Sodium Chloride 0 flush 09/02/24 18:00
Sodium Chloride 0.9% (Flush) Syringe IV 09/30/24 17:59
PER PROTOCOL ULYSSES
Review of Systems
-
History Source: Patient
All Other Systems: Reviewed and Negative
Physical Exam
-
General: Well Developed, Well Nourished, No Apparent Distress, Comfortable and Conversant
GI: Soft
Musculoskeletal: No Clubbing, No Cyanosis and No Edema
Extremities: Pulses Present
Skin: Warm and Dry
Psych: Calm
Labs
Lab Results
WBC 4.8 10^3/uL (4.8-10.8) 09/03/24 07:35
RBC 3.19 10^6/uL (4.20-5.40) L 09/03/24 07:35
Hgb 9.7 g/dL (12.0-16.0) L D 09/03/24 07:35
Hct 27.8 % (37.0-47.0) L 09/03/24 07:35
MCV 87.1 fL (81.0-99.0) 09/03/24 07:35
MCH 30.4 pg (27.0-31.0) 09/03/24 07:35
MCHC 34.9 g/dL (33.0-37.0) 09/03/24 07:35
RDW 20.8 % (11.5-14.5) H 09/03/24 07:35
Plt Count 189 10^3/uL (130-400) 09/03/24 07:35
MPV 10.6 fL (7.4-10.4) H 09/03/24 07:35
Abs Immat Gran (auto) 0.0 10^3/uL (0-0.05) 09/02/24 12:15
Absolute Neuts (auto) 3.5 10^3/uL (1.4-6.5) 09/02/24 12:15
Absolute Lymphs (auto) 0.7 10^3/uL (1.2-3.4) L 09/02/24 12:15
Absolute Monos (auto) 0.5 10^3/uL (0.1-0.6) 09/02/24 12:15
Absolute Eos (auto) 0.0 10^3/uL (0-0.7) 09/02/24 12:15
Absolute Basos (auto) 0.0 10^3/uL (0-0.2) 09/02/24 12:15
Immature Gran % 0.6 % (0-0.5) H 09/02/24 12:15
Neutrophils % 74.0 % (42.2-75.2) 09/02/24 12:15
Lymphocytes % 14.4 % (20.5-51.1) L 09/02/24 12:15
Monocytes % 10.4 % (1.7-9.3) H 09/02/24 12:15
Eosinophils % 0.2 % (0-6) 09/02/24 12:15
Basophils % 0.4 % (0-2) 09/02/24 12:15
Creatinine 0.6 mg/dL (0.6-1.0) 09/03/24 07:35
Vital Signs
Vital Signs
Temp Pulse Resp BP Pulse Ox
97.9 F 67 18 132/63 100
09/03/24 07:00 09/03/24 07:00 09/03/24 07:00 09/03/24 07:00 09/03/24 07:00
--- NOTE | 2024-09-03 13:43 | CM ---
environmental sustainability manager reviewed patient's chart and met with patient and patient states she is anxious to leave today, patient states she lives with her mother and her son is on his way to pick patient up from the hospital. Patient lives with her mother in a
condo, has a supportive son, independent with adl's and ambulation, no dme, megan drives. home today, patient refused to sign AMA paperwork and walked out.
Plan; Home no needs.
--- NOTE | 2024-09-03 13:44 | PTCARENOTE ---
patient requesting to leave first thing this morning while this staff writer was doing rounds. pt informed that her doctors will see her and if they find her stable for discharge then i would get her out as soon as possible. pt reported having a rough
night and that her roommate was loud and disruptive. staff writer apologized to pt for bad evening and said that if she wasn't going to be discharged today, that we would have other sleeping arrangements made. pt was seen by consult and that doctor said
she was stable from discharge on their end, but that the hospitalist would still have to evaluate. the pt was not interested in waiting for hospitalist evaluation and stated that her doctor saw her and that's the doctor that she cared about. pt said
that her son was coming and that she was leaving when he got here. notified but unable to come to the floor at this time. pt son arrived and pt starting walking towards exit. this RN asked pt to said AMA form and pt refused. pt refused in front
of nurses station with multiple staff members present. notified that pt left the floor AMA
--- NOTE | 2024-09-03 14:23 | W.PN.UPDATE ---
Addendum entered and electronically signed by Tamy Renteria MD 09/03/24 17:17:
Dictation- [id number]
Original Note:
Update Note
Progress Note Update
Came to the floor to round. Patient already left as she did not want to wait .
hematology already saw pt this am.
Per chart review plan is to reduce the dose of Talazoparib. Once cleared by her oncologist.
Hb was already up from charts also
D/W RN
== END 2024-09-03 14:50 | disposition left against medical advice (07) | DRG 812 ==
LOC: 4 WEST ACU 14:35
PROVIDERS: Nurse Practitioner Family; ADMITTING PHYSICIAN Hospitalist; ATTENDING PHYSICIAN Hospitalist; EMERGENCY PHYSICIAN Emergency Medicine; OTHER PHYSICIAN Internal Medicine Hematology & Oncology
PROC: 30233N1 Transfusion of Nonautologous Red Blood Cells into Peripheral Vein, Percutaneous Approach (ICD-10-PCS; 2024-09-02)
DX: D64.81 Anemia due to antineoplastic chemotherapy (principal); C78.00 Secondary malignant neoplasm of unspecified lung; T45.AX5A Adverse effect of immune checkpoint inhibitors and immunostimulant drugs, initial encounter; Y92.9 Unspecified place or not applicable; I10 Essential (primary) hypertension; C50.911 Malignant neoplasm of unspecified site of right female breast; I73.9 Peripheral vascular disease, unspecified; E78.5 Hyperlipidemia, unspecified; K59.09 Other constipation; M81.0 Age-related osteoporosis without current pathological fracture; Z91.040 Latex allergy status; Z88.5 Allergy status to narcotic agent; Z88.8 Allergy status to other drugs, medicaments and biological substances; Z86.74 Personal history of sudden cardiac arrest; Z87.891 Personal history of nicotine dependence; Z91.048 Other nonmedicinal substance allergy status; Z87.81 Personal history of (healed) traumatic fracture; Z95.820 Peripheral vascular angioplasty status with implants and grafts; Z79.01 Long term (current) use of anticoagulants
CPT/HCPCS: 80048; 80053; 82607; 82728; 82746; 83540; 83550; 85025; 85027; 85610; 85730; 86850; 86900; 86901; 86920; 99285; P9016

== ENCOUNTER 2024-10-06 11:26 | Emergency (ER) | payer OTHER, SELFPAY ==
[2024-10-06] VITALS (30 sets, daily range): BP systolic 103–228; BP diastolic 47–137; BMI 21.5
[2024-10-06 12:04] LABS: ALT (SGPT) 24 U/L (0-35); AST (SGOT) 26 U/L (14-36); Albumin 4.4 g/dl (3.5-5.0); Alkaline Phosphatase 95 U/L (38-126); Blood Urea Nitrogen 14 mg/dl (7-17); Calcium 9.2 mg/dl (8.4-10.2); Carbon Dioxide 21 mmol/L (22-30); Chloride 104 mmol/L (98-107); Glucose 140 mg/dl (70-99); INR 1.00; PT 13.5 Sec (11.4-14.6); Potassium 3.6 mmol/L (3.5-5.1); Sodium 133 mmol/L (135-145); Total Protein 7.0 g/dl (6.3-8.2); eGFR > 60.00
[2024-10-06 12:05] LABS: APTT 26.8 Sec (23.4-35.0)
[2024-10-06 12:12] LABS: Hematocrit 19.8 % (37.0-47.0); Hemoglobin 6.8 g/dL (12.0-16.0); Mean Corp Hgb Conc. 34.3 g/dL (33.0-37.0); Mean Corpuscular Volume 92.5 fL (81.0-99.0); Nucleated Red Blood Cells % 0 %; Platelet Count 149 10^3/uL (130-400); Red Cell Dist. Width 21.8 % (11.5-14.5)
--- NOTE | 2024-10-06 13:47 | ED.GENMED ---
History of Present Illness
General
Chief Complaint: Abnormal Lab Value
Source: patient
Exam Limitations: none
Time Seen by Provider: 10/06/24 12:37
Nursing documentation reviewed up to this point in time: agreed with
History of Present Illness
History of Present Illness:
The patient is a very pleasant 68-year-old female the past medical history of stage IV breast cancer, on daily Talzenna who reports that she feels anemic and came to the ED to get her blood work done given that it is a holiday weekend. Patient
reports that for about a week she has been feeling generalized weakness, especially in her bilateral arms and legs. She denies chest pain, dizziness and shortness of breath. She denies fevers and chills. Patient reports she has developed anemia
multiple times from her cancer treatment and feels she would likely need a blood transfusion. Patient also reports that she is due to get a shot at Dr. Watt's office tomorrow and admits that she does not feel that this shot is working to
'boost her blood counts' and is costing her a lot of money. She denies bloody and black stools. Expresses that she would rather not to stay overnight in the hospital again
Past History
Past History
ED Past Medical History: Cancer, HTN and Other (PAD w/ R LE stent)
ED Past Surgical History: Orthopedic
Social History
Tobacco: Non-smoker
Alcohol: Occasional
Drug: None
Personal: Single
Living: with family (lives with her mother)
Employment: Employed
Family History
Family History: Other
Review of Systems
Review of Systems
Allergies reviewed?: Yes
All Other Systems: ROS reviewed and negative except as documented in HPI and ROS
Constitutional: Reports fatigue
EENT: Reports no symptoms
Respiratory: Reports no symptoms
Cardiac: Reports no symptoms
ABD/GI: Reports no symptoms
: Reports no symptoms
Musculoskeletal: Reports no symptoms
Skin: Reports no symptoms
Neurological: Reports no symptoms
Endocrine: Reports no symptoms
Hematologic/Lymphatic: Reports no symptoms
Psychiatric: Reports no symptoms
Phy Exam
Physical Exam
Physical Exam:
Physical Exam
General: Pale but appears comfortable, conversational and smiling
Neck: supple. no meningeal signs. normal psoterior pharynx
Heart: s1/s2 regular rate and rhythm, no murmur. equal radial pulses.
Lungs: no acute respiratory distress. clear bilaterally
Abdomen: normal bowel sounds. not tender. no CVAT
Neuro: alert and oriented. no focal neurological deficits
Skin: no rash
Psychiatric: well kept. interactive and cooperative
Extremities: no edema. no calf tenderness. negative homans. good distal pulses
Course
Orders/Labs/Results
Orders:
Orders
10/06/24 11:44
Type+Screen Urgent
Complete Blood Count/With Diff Urgent
Comprehensive Metabolic Panel Urgent
PTT Urgent
Prothrombin Time Urgent
10/06/24 13:55
* Blood Bank Products Urgent
's Orders: [facility]
Blood Bank Products: *Packed RBC Leuko(PRBC's)
Quantity: 2
Transfuse Today: Yes
Is product needed for scheduled surgery?: No
Reason: Anemia
IV Insert/Care/Rem.- Treatment PRN
Abnormal Lab Results
10/06/24
11:44
WBC 4.5 L 10^3/uL
(4.8-10.8)
RBC 2.14 L 10^6/uL
(4.20-5.40)
Hgb 6.8 L* g/dL
(12.0-16.0)
Hct 19.8 L* %
(37.0-47.0)
MCH 31.8 H pg
(27.0-31.0)
RDW 21.8 H %
(11.5-14.5)
Absolute Lymphs (auto) 0.9 L 10^3/uL
(1.2-3.4)
Sodium 133 L mmol/L
(135-145)
Carbon Dioxide 21 L mmol/L
(22-30)
Glucose 140 H mg/dl
(70-99)
10/06/24 11:44
10/06/24 11:44
Vital Signs
Initial and Last Documented VS:
Initial Vital Signs
Temp Pulse Resp BP Pulse Ox
98.1 F 95 16 120/89 99
10/06/24 11:30 10/06/24 11:30 10/06/24 11:30 10/06/24 11:30 10/06/24 11:30
Last Documented Vital Signs
Temp Pulse Resp BP Pulse Ox
98.1 F 95 16 120/89 98
10/06/24 11:30 10/06/24 11:30 10/06/24 11:30 10/06/24 11:30 10/06/24 13:47
MDM/Problems Addressed
Differential Diagnosis Includes:
Symptomatic anemia due to Talzenna, blood loss anemia, anemia of chronic disease
MDM/Problems Addressed:
Patient presents with acute generalized weakness
Chronic conditions affecting care:
Anemia
Acute Exacerbation and/or Progression of Chronic Illness:
Patient likely has acute on chronic anemia
*Pulse Oximetry
SaO2: 98
Oxygen Mode of Delivery: Room air
Patient hypoxic: no
Comment: Patient is 98% on room air
*EKG
Interpreted by ED Provider?: NA
*Child Care Attendant Interpretation
Rate: normal
Interpretation: normal
Rhythm: sinus
*Critical Care Note
Total Time (30-74mins, 75-104mins- exclusive of procedures): Not Applicable
Data Reviewed
Review of Other/Old Records Reveals: Discharge Summary (Discharge summary reviewed from 09/2024 when patient was admitted for symptomatic anemia thought to be due to to Talzenna)
Source: patient
Patient Management
Social determinants of health affecting care: Living situation and Strong social support
Discussion with other providers: Other (Case discussed with Dr. Michelle Mary who recommended that patient call her oncology office tomorrow morning. She said that she will ask the oncology nurse to call her and would continue the same dose for
now of the Talzenna)
ED Attending Note
-
Portions of this chart may have been created with voice recognition software.� Occasional wrong word or��sound alike� substitutions may have occurred due to the inherent limitations of voice recognition software.
Discharge Plan
Departure
Prescriptions:
No Action
Theragen Tablet
1 tab PO DAILY
Airborne (ascorbate sodium) 333-1.7 mg Tablet,Chewable
1 tab PO DAILY
rivaroxaban [Xarelto] 2.5 mg Tablet
2.5 mg PO BID
Talzenna 0.75 mg Capsule
0.75 mg PO DAILY
Referrals:
UNKNOWN - PT DOES,NOT KNOW [Family Provider]
Interventions
Interventions:
*Risk Screen - Suicide Last Done: 10/06/24 11:30
*General Assessment Last Done: 10/06/24 11:30
*Neglect/Abuse Screening Last Done: 10/06/24 11:30
*ED- Fall Risk Assessment Last Done: 10/06/24 12:54
*ED COVID-19 Vaccine History Last Done: 10/06/24 12:54
Discharge Date and Time
Print Language: INDONESIAN
--- NOTE | 2024-10-06 15:03 | EDRN ---
Patient receiving 1st unit of PRBC's. Explained to patient signs and symptoms of a transfusion reaction. Patient verbalized understanding.
--- NOTE | 2024-10-06 15:17 | EDRN ---
Patient is asymptomatic of a transfusion reaction.
--- NOTE | 2024-10-06 16:23 | EDRN ---
Patient tolerating PRBC. Asymptomatic of a transfusion reaction.
--- NOTE | 2024-10-06 18:06 | EDRN ---
Patient receiving 2nd unit PRBC. Reinforced with patient signs and symptoms of a transfusion reaction. Verbalized understanding.
--- NOTE | 2024-10-06 18:24 | EDRN ---
Patient tolerating PRBC well. Asymptomatic of a transfusion reaction.
== END 2024-10-06 20:25 | disposition home or self-care (01) ==
LOC: EMR 11:26
PROVIDERS: EMERGENCY PHYSICIAN Emergency Medicine
DX: R53.1 Weakness (principal); D63.0 Anemia in neoplastic disease; I10 Essential (primary) hypertension; Z85.3 Personal history of malignant neoplasm of breast
CPT/HCPCS: 99283; 36430; 80053; 85025; 85610; 85730; 86850; 86900; 86901; 86920; P9016

== ENCOUNTER 2024-11-05 09:27 | Outpatient (RCR) | payer OTHER, SELFPAY ==
[2024-11-05] VITALS (7 sets, daily range): BP systolic 127–170; BP diastolic 66–85
== END 2024-12-01 23:59 | disposition home or self-care (01) ==
LOC: OID 09:27
PROVIDERS: ATTENDING PHYSICIAN Internal Medicine Hematology & Oncology
DX: C50.912 Malignant neoplasm of unspecified site of left female breast (principal); C78.00 Secondary malignant neoplasm of unspecified lung; D63.0 Anemia in neoplastic disease; E83.52 Hypercalcemia; Z87.891 Personal history of nicotine dependence; Z15.01 Genetic susceptibility to malignant neoplasm of breast
CPT/HCPCS: 36430; 86850; 86900; 86901; 86920; P9016